=== PATIENT | female | born 1930 | race Caucasian/White ===

== ENCOUNTER 2017-05-03 02:56 | Observation (INO) ==
[2017-05-03] MEDS ORDERED: ASPIRIN CHEWABLE PO STA ×2 (03:45→05:25)
[2017-05-03] MEDS ORDERED: DUONEB NEB STA (03:46)
--- NOTE | 2017-05-03 03:50 | ED.PDOC ---
General ED Provider: Dr. BRENDA ADDISON Chief Complaint: Chest Pain Stated Complaint: Patient states she has had chest pain for months which she states comes for few secs. She then feels a pressures on her head and arms. She also felt that her heart was racing tonight. Has a history of Atrial fibrillation but is off of coumadin and Aspirin due to GI bleeding. She states that she has been getting treatment for Bronchitis with antibiotics. Time Seen by Physician: 03:47 Mode of Arrival: Ambulance Information Source: Patient, EMT Primary Care Provider: MONIQUE GARCIA Nursing and Triage Documentation Reviewed and Agree: Yes Review of Systems - Review Of Systems Constitutional: Reports: No symptoms Eyes: Reports: No symptoms Ears, Nose, Mouth, Throat: Reports: No symptoms Respiratory: Reports: Cough Cardiac: Reports: Chest pain GI: Reports: No symptoms : Reports: No symptoms Musculoskeletal: Reports: No symptoms Skin: Reports: No symptoms Neurological: Reports: Anxiety Endocrine: Reports: No symptoms Hematologic/Lymphatic: Reports: No symptoms All Other Systems: Reviewed and Negative Past Medical History - Past Medical History Endocrine: Reports: Hypothyroid Cardiovascular: Reports: Hypertension, CHF, A-Fib Respiratory: Reports: Asthma Hematological: Reports: None Gastrointestinal: Reports: None Genitourinary: Reports: None Neuro/Psych: Reports: Anxiety Musculoskeletal: Reports: Arthritis Cancer: Reports: None Last Menstrual Period: PT HAS HAD A HYSTERECTOMY Other Pertinent Past Medical History: Sleep Apnea, uses oxygen at night two liters NC - Surgical History General Surgical History: Reports: Hysterectomy - Family History Family History: Reports: Heart (sister ) - Social History Smoking Status: Never smoker Hx Substance Use: No Alcohol Screening: None - Immunizations Tetanus Shot up to Date: No Physical Exam - Physical Exam Appearance: Ill-appearing, No pain distress Ill-appearing: Mild Eyes: KAMLESH, EOMI, Conjunctiva clear ENT: Ears normal, Nose normal, Oropharynx normal Neck: Supple Respiratory: Airway patent, Breath sounds clear, Breath sounds equal, Respirations nonlabored Cardiovascular: Tachycardia GI/: Soft, Nontender, No masses, Bowel sounds normal, No Organomegaly Musculoskeletal: Normal strength, ROM intact, No edema, No calf tenderness Skin: Warm, Dry, Normal color Neurological: Sensation intact, Motor intact, Alert, Oriented Psychiatric: Anxious Interpretation - Radiology Interpretation Radiology Interpretation By: ED Physician Radiology Results: Negative Exam Interpreted: Portable CXR - [facility] [place] Rate: Normal Rhythm: Other (Atrial Fibrillation.) - EKG Interpretation Time of EKG #1: 03:30 Rate: Tachy Rhythm: Sinus Ectopy: None Muse: Left ST Segment: Normal Interpretation: Atrial Fibrillation. with ventricular rate of 87 Re-Evaluation - Re-Evaluation Time of Re-Evaluation: 05:26 Status: Improved Physician Notification - Case Discussed Physician Notified: Dr Christiansen Time of Notification: 05:26 (Ok to admit to cope for observation.) Critical Care Note - Critical Care Note Total Time (mins): 15 Course - Course Hematology/Chemistry: 05/03/17 04:28 05/03/17 04:28 Orders, Labs, Meds: Lab Review 05/03/17 04:28 WBC 5.78 RBC 3.93 L Hgb 12.2 Hct 36.0 L MCV 91.6 MCH 31.0 MCHC 33.9 RDW Coeff of [place] 14.5 Plt Count 196 Immature Gran % (Auto) 0.2 Neut % (Auto) 79.3 Lymph % (Auto) 12.1 [place] % (Auto) 6.9 Eos % (Auto) 1.0 Baso % (Auto) 0.5 Immature Gran # (Auto) 0.0 Neut # 4.6 Lymph # 0.7 [place] # 0.4 Eos # 0.1 Baso # 0.0 D-Dimer (Manual) 1249.15 Sodium 145 Potassium 3.5 Chloride 108 H Carbon Dioxide 26 Anion Gap 14.5 BUN 19 H Creatinine 1.89 H Estimated GFR (MDRD) 25.00 BUN/Creatinine Ratio 10.05 Glucose 125 H Lactic Acid 9.5 Calcium 9.5 Total Bilirubin 0.93 AST 20 ALT 10 L Alkaline Phosphatase 83 Total Creatine Kinase 139 CK-MB (CK-2) 1.9 CK-MB (CK-2) % 1.79902 Troponin I 0.0250 B-Natriuretic Peptide 126 H Total Protein 7.2 Albumin 3.8 Globulin 3.4 Albumin/Globulin Ratio 1.12 Procalcitonin < 0.05 Orders Category Date Time Status PLACE PATIENT OBSERVATION .TO MEDS[facility] (MONITORED BED ADMISSION 05/03/17 04: 36 Active ) EKG-(ED ONLY) Stat CARDIO 05/03/17 03:46 Ordered NEBULIZER TREATMENT Routine CARDIO 05/03/17 04:40 Ordered NEBULIZER TREATMENT Stat CARDIO 05/03/17 03:46 Ordered OXYGEN Routine CARDIO 05/03/17 04:36 Ordered ACTIVITY .Early Mobilization for VTE Prevention CARE 05/03/17 04:37 Active INTAKE & OUTPUT Q8HR CARE 05/03/17 04:36 Active TELEMETRY MONITORING TELE CARE 05/03/17 04:37 Active VITAL SIGNS Q4HR CARE 05/03/17 04:37 Active 2 GRAM SODIUM DIET DIETARY 05/03/17 Breakfast Ordered CARDIAC DIET DIETARY 05/03/17 Breakfast Ordered B-TYPE NATRIURETIC PEPTIDE Stat LAB 05/03/17 04:28 Completed BLOOD CULTURE Stat LAB 05/03/17 04:28 Received CBC W/ AUTO DIFF DAILY@0600 LAB 05/04/17 06:00 Ordered CBC W/ AUTO DIFF DAILY@0600 LAB 05/05/17 06:00 Ordered CBC W/ AUTO DIFF DAILY@0600 LAB 05/06/17 06:00 Ordered CBC W/ AUTO DIFF DAILY@0600 LAB 05/07/17 06:00 Ordered CBC W/ AUTO DIFF DAILY@0600 LAB 05/08/17 06:00 Ordered CBC W/ AUTO DIFF DAILY@0600 LAB 05/09/17 06:00 Ordered CBC W/ AUTO DIFF DAILY@0600 LAB 05/10/17 06:00 Ordered CBC W/ AUTO DIFF DAILY@0600 LAB 05/11/17 06:00 Ordered CBC W/ AUTO DIFF DAILY@0600 LAB 05/12/17 06:00 Ordered CBC W/ AUTO DIFF DAILY@0600 LAB 05/13/17 06:00 Ordered CBC W/ AUTO DIFF DAILY@0600 LAB 05/14/17 06:00 Ordered CBC W/ AUTO DIFF DAILY@0600 LAB 05/15/17 06:00 Ordered CBC W/ AUTO DIFF DAILY@0600 LAB 05/16/17 06:00 Ordered CBC W/ AUTO DIFF DAILY@0600 LAB 05/17/17 06:00 Ordered CBC W/ AUTO DIFF DAILY@0600 LAB 05/18/17 06:00 Ordered CBC W/ AUTO DIFF DAILY@0600 LAB 05/19/17 06:00 Ordered CBC W/ AUTO DIFF DAILY@0600 LAB 05/20/17 06:00 Ordered CBC W/ AUTO DIFF DAILY@0600 LAB 05/21/17 06:00 Ordered CBC W/ AUTO DIFF DAILY@0600 LAB 05/22/17 06:00 Ordered CBC W/ AUTO DIFF Stat LAB 05/03/17 04:28 Completed COMPREHENSIVE METABOLIC PANEL DAILY@0600 LAB 05/04/17 06:00 Ordered COMPREHENSIVE METABOLIC PANEL DAILY@0600 LAB 05/05/17 06:00 Ordered COMPREHENSIVE METABOLIC PANEL DAILY@0600 LAB 05/06/17 06:00 Ordered COMPREHENSIVE METABOLIC PANEL DAILY@0600 LAB 05/07/17 06:00 Ordered COMPREHENSIVE METABOLIC PANEL DAILY@0600 LAB 05/08/17 06:00 Ordered COMPREHENSIVE METABOLIC PANEL DAILY@0600 LAB 05/09/17 06:00 Ordered COMPREHENSIVE METABOLIC PANEL DAILY@0600 LAB 05/10/17 06:00 Ordered COMPREHENSIVE METABOLIC PANEL DAILY@0600 LAB 05/11/17 06:00 Ordered COMPREHENSIVE METABOLIC PANEL DAILY@0600 LAB 05/12/17 06:00 Ordered COMPREHENSIVE METABOLIC PANEL DAILY@0600 LAB 05/13/17 06:00 Ordered COMPREHENSIVE METABOLIC PANEL DAILY@0600 LAB 05/14/17 06:00 Ordered COMPREHENSIVE METABOLIC PANEL DAILY@0600 LAB 05/15/17 06:00 Ordered COMPREHENSIVE METABOLIC PANEL DAILY@0600 LAB 05/16/17 06:00 Ordered COMPREHENSIVE METABOLIC PANEL DAILY@0600 LAB 05/17/17 06:00 Ordered COMPREHENSIVE METABOLIC PANEL DAILY@0600 LAB 05/18/17 06:00 Ordered COMPREHENSIVE METABOLIC PANEL DAILY@0600 LAB 05/19/17 06:00 Ordered COMPREHENSIVE METABOLIC PANEL DAILY@0600 LAB 05/20/17 06:00 Ordered COMPREHENSIVE METABOLIC PANEL DAILY@0600 LAB 05/21/17 06:00 Ordered COMPREHENSIVE METABOLIC PANEL DAILY@0600 LAB 05/22/17 06:00 Ordered COMPREHENSIVE METABOLIC PANEL Stat LAB 05/03/17 04:28 Completed CREATINE KINASE Q8H LAB 05/03/17 10:45 Ordered CREATINE KINASE Q8H LAB 05/03/17 18:45 Ordered CREATINE KINASE Stat LAB 05/03/17 04:28 Completed D-DIMER Stat LAB 05/03/17 04:28 Completed LACTIC ACID Stat LAB 05/03/17 04:28 Completed PROCALCITONIN Stat LAB 05/03/17 04:28 Completed TROPONIN I Q8H LAB 05/03/17 10:45 Ordered TROPONIN I Q8H LAB 05/03/17 18:45 Ordered TROPONIN I Stat LAB 05/03/17 04:28 Completed Aspirin [Aspirin Chewable] MEDS 05/03/17 03:45 Discontinued 324 mg PO ONCE STA Aspirin [Aspirin Chewable] MEDS 05/03/17 05:25 Stat 81 mg PO ONCE STA Clarithromycin [Biaxin] MEDS 05/03/17 09:00 Ordered 500 mg PO BID Diltiazem HCl [Cardizem Cd] MEDS 05/03/17 09:00 Ordered 120 mg PO DAILY Enoxaparin Sodium [Lovenox] MEDS 05/03/17 09:00 Ordered 30 mg SUBCUT DAILY Enoxaparin Sodium [Lovenox] MEDS 05/03/17 09:00 Discontinued 40 mg SUBCUT DAILY Furosemide [Lasix Tab] MEDS 05/03/17 09:00 Ordered 40 mg PO DAILY Ipratropium/Albuterol Neb [Duoneb] MEDS 05/03/17 03:46 Discontinued 1 vial NEB ONCE STA Ipratropium/Albuterol Neb [Duoneb] MEDS 05/03/17 06:00 Ordered 1 vial NEB RTQID Levothyroxine Sodium [Synthroid] MEDS 05/03/17 09:00 Ordered 75 mcg PO DAILY Lisinopril [Lisinopril] MEDS 05/03/17 09:00 Ordered 20 mg PO BID Losartan Potassium [Cozaar] MEDS 05/03/17 09:00 Ordered 100 mg PO DAILY Metoprolol Succinate [Toprol Xl] MEDS 05/03/17 09:00 Ordered 50 mg PO DAILY Mirtazapine [Remeron] MEDS 05/03/17 21:00 Ordered 15 mg PO BEDTIME Morphine Sulfate [Morphine 2 mg/ml Syringe] MEDS 05/03/17 04:36 Ordered 2 mg IVP Q4H PRN Omeprazole [Prilosec] MEDS 05/03/17 06:30 Ordered 20 mg PO QDAC Ondansetron HCl/Pf [Zofran 4 mg/2 ml] MEDS 05/03/17 04:36 Ordered 4 mg IVP Q6H PRN Polyethylene Glycol 3350 [Miralax] MEDS 05/03/17 09:00 Ordered 17 gm PO DAILY Potassium Chloride in 0.9%NaCl [Sodium Chloride 0.9%- MEDS 05/03/17 05:00 Ordered KCl 20 Meq] 1,000 ml IV 50 mls/hr RESUSCITATION STATUS Routine OTHERS 05/03/17 04:36 Ordered CHEST, 1V AP ONLY Stat RADS 05/03/17 03:45 Completed VENTILATION/PERFUSION SCAN [PULMONARY VENT/PERFUSION/ RADS 05/03/17 05:24 Ordered NM] Stat Medications Generic Name Dose Route Start Last Admin Trade Name Freq PRN Reason Stop Dose Admin Albuterol/Ipratropium 1 vial 05/03/17 06:00 Dudenis DOWNEY RTQID LANCE Aspirin 81 mg 05/03/17 05:25 Aspirin Chewable PO 05/03/17 05:26 ONCE STA Clarithromycin 500 mg 05/03/17 09:00 Biaxin PO BID [facility] Diltiazem HCl 120 mg 05/03/17 09:00 Cardizem Cd PO DAILY [facility] Enoxaparin Sodium 30 mg 05/03/17 09:00 Lovenox SUBCUT DAILY [facility] Furosemide 40 mg 05/03/17 09:00 Lasix Tab PO DAILY [facility] Potassium Chloride/Sodium Chloride 1,000 mls @ 50 mls/hr 05/03/17 05:00 Sodium Chloride 0.9%-Kcl 20 Meq IV .Q20H [facility] Levothyroxine Sodium 75 mcg 05/03/17 09:00 Synthroid PO DAILY [facility] Losartan Potassium 100 mg 05/03/17 09:00 Cozaar PO DAILY [facility] Metoprolol Succinate 50 mg 05/03/17 09:00 Toprol Xl PO DAILY [facility] Morphine Sulfate 2 mg 05/03/17 04:36 Morphine 2 Mg/Ml Syringe IVP Q4H PRN Severe Pain Non-Formulary Medication 20 mg 05/03/17 09:00 Lisinopril [Lisinopril] PO BID [facility] Non-Formulary Medication 15 mg 05/03/17 21:00 Mirtazapine [Remeron] PO BEDTIME [facility] Omeprazole 20 mg 05/03/17 06:30 Prilosec PO QDAC [facility] Ondansetron HCl 4 mg 05/03/17 04:36 Zofran 4 Mg/2 Ml IVP Q6H PRN Nausea / Vomiting Polyethylene Glycol 17 gm 05/03/17 09:00 Miralax PO DAILY [facility] Discontinued Medications Generic Name Dose Route Start Last Admin Trade Name Frerebeca PRN Reason Stop Dose Admin Albuterol/Ipratropium 1 vial 05/03/17 03:46 05/03/17 04:50 Itzel DOWNEY 05/03/17 03:47 1 vial ONCE STA Administration Aspirin 324 mg 05/03/17 03:45 05/03/17 03:50 Aspirin Chewable PO 05/03/17 03:46 324 mg ONCE STA Administration Enoxaparin Sodium 40 mg 05/03/17 09:00 Lovenox SUBCUT DAILY LANCE Vital Signs: Temp Pulse Resp BP Pulse Ox 05/03/17 02:57 97.4 F L 102 H 28 H 155/94 H 97 JIMMY Risk Score Age >/= 65: Yes >/= 3 CAD Risk Factors: Yes Known CAD (Stenosis >/= 50%): No ASA Use in Past 7 Days: No Severe Angina (>/= 2 episodes in 24 hours): No EKG ST Changes >/= 0.5mm: No Postive Cardiac Marker: No JIMMY Total Score: 2 JIMMY Risk Score: Risk Score Odds of by 30D 0 0.1 (0.1-0.2) 1 0.3 (0.2-0.3) 2 0.4 (0.3-0.5) 3 0.7 (0.6-0.9) 4 1.2 (1.0-1.5) 5 2.2 (1.9-2.6) 6 3.0 (2.5-3.6) 7 4.8 (3.8-6.1) Departure - Departure Time of Disposition: 05:27 Disposition: PLACED OBSERVATION Discharge Problem: Chest pain Atrial fibrillation Qualifiers: Atrial fibrillation type: chronic Qualifier Code: (I48.2) Chronic atrial fibrillation Condition: Fair Pt referred to PMD for follow-up: No (Admitted ) Allergies/Adverse Reactions: Allergies Penicillins Adverse Reaction (Verified 05/03/17 03:09) Home Medications: Ambulatory Orders Furosemide [Lasix] 40 mg PO DAILY 03/21/16 Metoprolol Succinate [Toprol Xl] 50 mg PO DAILY 03/21/16 Mirtazapine [Remeron] 15 mg PO BEDTIME 03/21/16 Omeprazole [Prilosec] 20 mg PO QDAC 03/21/16 Polyethylene Glycol 3350 [Miralax] 17 gm PO DAILY 03/21/16 RX: Lisinopril 20 mg PO BID 03/21/16 Diltiazem HCl [Cartia Xt] 120 mg PO DAILY 05/03/17 Fluticasone Propionate [Flonase] 2 spray NS DAILY 05/03/17 Levothyroxine Sodium [Unithroid] 75 mcg PO DAILY 05/03/17 RX: Clarithromycin 500 mg PO BID 05/03/17 RX: Losartan Potassium 100 mg PO DAILY 05/03/17
[2017-05-03 04:32] LABS: BASOPHILS % (AUTO) 0.5 % (0.0-3.0); EOSINOPHILS # (AUTO) 0.1 K/ul (0.0-0.7); HEMOGLOBIN 12.2 g/dl (12.0-16.0); IMMATURE GRANULOCYTE % (AUTO) 0.2 % (0.0-5.0); LYMPHOCYTES # (AUTO) 0.7 K/uL (0.60-3.4); LYMPHOCYTES % (AUTO) 12.1 (10.0-50.0); MEAN CORPUSCULAR HGB CONC 33.9 (31.8-35.4); MEAN CORPUSCULAR VOLUME 91.6 fl (81.0-99.0); MONOCYTES # (AUTO) 0.4 K/uL (0.4-2.0); MONOCYTES % (AUTO) 6.9 (0-10); NEUTROPHILS # (AUTO) 4.6 K/ul (2.0-6.9); NEUTROPHILS % (AUTO) 79.3; PLATELET COUNT 196 10^3/uL (140-440); RED BLOOD COUNT 3.93 10^6/ul (4.20-5.40); WHITE BLOOD COUNT 5.78 K/ul (4.6-10.2)
[2017-05-03] MEDS ORDERED: ZOFRAN 4 MG/2 ML IVP PRN (04:36)
[2017-05-03] MEDS ORDERED: MORPHINE 2 MG/ML SYRINGE IVP PRN (04:36)
--- NOTE | 2017-05-03 04:52 | DI ---
EXAM: Single-view chest HISTORY: Chest pain COMPARISON: Single-view chest 05/14/2008 FINDINGS: Heart is enlarged. Atherosclerotic changes are seen involving the aortic arch.. There is stable mild elevation left hemidiaphragm.. There is no evidence of congestive heart failure or inf iltrate. IMPRESSION: Mild cardiomegaly without evidence of active pulmonary disease or interval change
[2017-05-03] MEDS ORDERED: SODIUM CHLORIDE 0.9%-KCL 20 MEQ 1,000 ML IV SCH (05:00)
[2017-05-03 05:08] LABS: ALBUMIN 3.8 g/dL (3.4-5.0); ALBUMIN/GLOBULIN RATIO 1.12; ANION GAP 14.5; BILIRUBIN,TOTAL 0.93 mg/dL (0.00-1.20); BUN/CREATININE RATIO 10.05; CALCIUM 9.5 mg/dL (8.2-10.2); CREATININE 1.89 mg/dL (0.60-1.30); POTASSIUM 3.5 mmol/L (3.5-5.10); TOTAL PROTEIN 7.2 g/dL (5.8-8.1); TROPONIN I 0.025 ng/ml (0.0000-0.4000)
[2017-05-03 05:11] LABS: CREATINE KINASE MB 1.9 ng/ml (0.0-3.6)
[2017-05-03] MEDS: DUONEB NEB SCH ×3 (06:04→14:02)
[2017-05-03 06:19] VITALS: BMI 33.4
[2017-05-03] MEDS ORDERED: PRILOSEC PO SCH (06:30)
[2017-05-03] MEDS ORDERED: NON-FORMULARY MEDICATION (Lisinopril [Lisinopril] 20 MG) PO SCH ×22 (09:00)
[2017-05-03] MEDS ORDERED: MIRALAX PO SCH ×2 (09:00→09:30)
[2017-05-03] MEDS ORDERED: LOVENOX SUBCUT SCH ×3 (09:00)
[2017-05-03] MEDS ORDERED: CARDIZEM CD PO SCH (09:00)
[2017-05-03] MEDS ORDERED: BIAXIN PO SCH (09:00)
[2017-05-03] MEDS ORDERED: TOPROL XL PO SCH (09:00)
[2017-05-03] MEDS ORDERED: SYNTHROID PO SCH ×2 (09:00)
[2017-05-03] MEDS ORDERED: COZAAR PO SCH (09:00)
[2017-05-03] MEDS ORDERED: NON-FORMULARY MEDICATION (Metoprolol Tartrate [Lopressor] 50 MG) PO SCH ×22 (09:15)
[2017-05-03] MEDS ORDERED: DILTIAZEM HCL 120 MG PO SCH (09:15)
--- NOTE | 2017-05-03 11:39 | NM ---
EXAM: Ventilation perfusion lung scan HISTORY: Elevated D-dimer with intermittent chest pain. COMPARISON: None of this type. PROCEDURE: Ventilation: The patient was allowed to inhale from a reservoir of 34.6 mCi of 99 technetium DTPA a erosol. Subsequently anterior, posterior, lateral and anterior and posterior oblique images were ob tained. Perfusion: The patient was injected with 5.2 mCi of 99 technetium MAA intravenously after which ant erior, posterior, lateral and anterior and posterior oblique images were obtained. FINDINGS: The ventilation images demonstrate modest clumping of aerosol in the central airways. The examination otherwise demonstrates a relatively uniform distribution of tracer with greater activit y seen in the lung bases bilaterally. The perfusion images demonstrate a matching pattern of activit y with no segmental or subsegmental perfusion defects mismatched on the ventilation examination. IMPRESSION: Low probability of pulmonary embolus. Results faxed to the ER at 11:33 a.m.
[2017-05-03] MEDS ORDERED: LASIX TAB PO SCH (12:00)
[2017-05-03 12:19] LABS: TROPONIN I 0.047 ng/ml (0.0000-0.4000)
[2017-05-03 12:21] LABS: CREATINE KINASE MB 1.8 ng/ml (0.0-3.6)
[2017-05-03 14:39] VITALS: TEMP 97.6
[2017-05-03 18:05] VITALS: BP 107/67
[2017-05-03] MEDS ORDERED: MIRTAZAPINE 15 MG PO SCH ×22 (21:00)
[2017-05-03] MEDS ORDERED: MIRTAZAPINE PO SCH (21:00)
--- NOTE | 2017-07-11 14:01 | SSS ---
PRINCIPAL DIAGNOSIS: 1. Palpitations 2. Chest pain, noncardiac 3. Hypertension 4. Anxiety 5. Chronic constipation 6. Hypothyroidism DISCUSSION: Evelin is an 86 year old lady with a history of atrial fibrillation but has been off Coumadin and Aspirin due to generalized bleeding. She recently had cough and congestion and has been receiving antibiotics for bronchitis. Today she had sensation that her heart was racing an presented to the emergency department and was evaluated by Dr. Alexander. He felt that the patient needed to be admitted for observation therefore she was admitted to my services for evaluation and treatment of her palpitations. MEDICATIONS: Lasix Toprol Remeron Prilosec Miralax Lisinopril Cartia Flonase Unithroid Clarithromycin Losartan ALLERGIES: Penicillin PAST MEDICAL HISTORY: Palpitations Depression Anxiety GERD Chronic constipation Rhinitis Hypothyroidism Chronic atrial fibrillation without anticoagulation due to GI bleed History of sleep apnea using oxygen 2 liters nasal cannula at night SURGICAL HISTORY: Hysterectomy SOCIAL HISTORY: No alcohol, tobacco or illicit drug use. FAMILY HISTORY: Thought positive for cardiac history in her sister. REVIEW OF SYSTEMS: No headaches, visual changes, tinnitus, abdominal pain, blood in the stool, urinary symptoms or seizures. She has had some cough and productive purulent sputum and this has improved. Some chest pain with this cough but without hemoptysis. PHYSICAL EXAMINATION: VITAL SIGNS: Temperature 96, pulse 63, respirations 18 and blood pressure 107/ 67. HEENT: Pupils are round. NECK: Supple. CHEST: Clear. CARDIOVASCULAR: Regular rate and rhythm. ABDOMEN: Soft, nontender. EXTREMITIES: Distal extremities without cyanosis or edema. CLINICAL COURSE: She was admitted to telemetry. Her hospital stay was essentially was unremarkable. Her labratories were reviewed. She did have a slight elevation in her D-dimer. However a lung scan was noted to be a low probably for pulmonary embolis. Again her telemetry remained unrevealing and her symptoms of chest pain resolved. At this point we felt that she was stable for discharge. She was discharge to arrange outpatient cardiac followup. Please see orders. MTDD
== END 2017-05-03 19:25 | disposition home or self-care (01) ==
LOC: ED 02:56 → MEDSURG B 05:33
PROVIDERS: ADMIT Family Medicine; ATTEND Family Medicine
DX: R07.89 Other chest pain (principal); I48.2 Chronic atrial fibrillation; R79.1 Abnormal coagulation profile; R00.0 Tachycardia, unspecified; R00.2 Palpitations; I10 Essential (primary) hypertension; I50.9 Heart failure, unspecified; F41.9 Anxiety disorder, unspecified; E03.9 Hypothyroidism, unspecified; K59.09 Other constipation; Z79.899 Other long term (current) drug therapy
CPT/HCPCS: 36415; 80053; 82550; 82553; 83605; 83880; 84145; 84484; 85025; 85379; 87040; 93005; 93010; 94640; 96360; 96361; 96372; 99284

== ENCOUNTER 2017-09-14 10:41 | Outpatient (CLI) ==
--- NOTE | 2017-09-14 11:24 | DI ---
EXAM: Five views of the lumbar spine. History: Lower back trauma. Comparison: Lumbar spine radiograph 11/09/2015 Findings: Osteopenia. Atherosclerotic vascular calcifications. No acute fracture or subluxation of the lumbar spine. Mild to moderate multilevel degenerative disc space narrowing with prominent ante rior osteophyte at L2-3 not significantly changed. Impression: 1. No acute osseous abnormality of the lumbar spine. 2. Osteopenia. 3. Degenerative changes. 4. No significant interval change compared to the prior study.
== END 2017-09-14 10:42 | disposition home or self-care (01) ==
LOC: RAD 10:41
PROVIDERS: ATTEND Family Medicine
DX: M54.5 Low back pain (principal)

== ENCOUNTER 2018-03-26 09:08 | Day surgery (SDC) | payer OTHER ==
[2018-03-26] MEDS ORDERED: LIDOCAINE 1% 20 ML MDV ID STA (10:31)
[2018-03-26] MEDS ORDERED: VERSED ONE (11:45)
[2018-03-26] MEDS ORDERED: LIDOCAINE HCL 2% LUER-JET ONE (11:45)
[2018-03-26] MEDS ORDERED: ROMAZICON IVP ONE (11:45)
[2018-03-26] MEDS ORDERED: DIPRIVAN 20 ML VIAL IVP ONE (11:45)
[2018-03-26 16:06] VITALS: BP 118/67; TEMP 98.6
--- NOTE | 2018-03-27 11:37 | OP ---
PROCEDURE: EGD (ESOPHAGOGASTRODUODENOSCOPY) WITH BALLOON DILATATION. ENDOSCOPIST: Nydia MONAHAN M.D. INDICATION: DYSPHAGIA INSTRUMENT: [id number]. TTS BALLOON 12-13.5-15 MEDICATION: PER ANESTHESIA. PROCEDURE: The patient was positioned for endoscopy. The oropharynx was sprayed with Cetacaine spray and the endoscope was advanced through the bite block into the esophagus and from there advanced to the duodenum. The duodenum was normal. The pylorus was patent. The antrum is normal. Retroflex exam reveals a normal cardia. Distal esophageal rings is noted. We passed the TTS balloon 12-13.5-15. We dilatation sequentially to 15mm, trauma was noted at the GE junction although it was very superficial we elected to stop at this level and the remaining esophagus was normal. PLAN: 1. Repeat as needed CC: Dr. Yusef SOUZA
== END 2018-03-26 13:05 | disposition home or self-care (01) ==
LOC: SURG 09:08
PROVIDERS: ATTEND Internal Medicine Gastroenterology
DX: K22.2 Esophageal obstruction (principal); R13.10 Dysphagia, unspecified